=== PATIENT | female | born 1995 | race Caucasian/White ===

== ENCOUNTER 2017-08-12 04:41 | Emergency (ER) | payer OTHER ==
[~2017-08-12] VITALS: Ht 160 cm; Wt 55.5 kg
[2017-08-12 04:43] VITALS: BP 145/91; PULSE 97; RESP 20; TEMP 99.4; O2SAT 100
[2017-08-12] MEDS ORDERED: SODIUM CHLOR 0.9% 1000 ML INJ 1,000 ML IV SCH (04:53)
[2017-08-12] MEDS ORDERED: PROCHLORPERAZINE INJ 10 MG/2 ML VIAL IV PUSH ONE (05:00)
[2017-08-12] MEDS ORDERED: diphenhydrAMINE HCL 50 MG/ML VIAL IV PUSH ONE (05:00)
[2017-08-12] MEDS ORDERED: DICYCLOMINE HCL 20 MG/2 ML VIAL IM ONE (05:00)
[2017-08-12] MEDS ORDERED: SODIUM CHLORIDE 0.9% FLUSH 10 ML FLUSH IV FLUSH PRN (05:00)
--- NOTE | 2017-08-12 05:00 | PD ---
HPI Chief Complaint: Abdominal Pain Time Seen by Provider: 04:53 Travel History International Travel<30 days: No Contact w/Intl Traveler<30days: No Traveled to known affect area: No History of Present Illness HPI 21 yo F c/o abdominal pain and vomiting. Pt reports a history of cyclic vomiting syndrome and that morphine and muscle relaxers work best for her typically. No fever. No dysuria or discharge. Patient states last oral intake was [employer] chicken noodle soup. She states that normally she develops nausea and vomiting that lasts for 8 hours at a time. PFSH Past Medical History Gastrointestinal Disorders: Yes (ABDOMINAL PAIN) Influenza Vaccination: No ?: Unknown Past Surgical History Surgical History: No Previous Surgery Social History Alcohol Use: Yes (OCCAS) Tobacco Use: No Substance Use: No Allergies-Medications (Allergen,Severity, Reaction): Coded Allergies: No Known Allergies (Unverified , 08/12/17) Reported Meds & Prescriptions Reported Meds & Active Scripts Active Phenergan (Promethazine HCl) 25 Mg Tablet 25 Mg PO Q6H PRN Review of Systems Except as stated in HPI: all other systems reviewed are Neg Physical Exam Narrative GENERAL: 21-year-old female pleasant well-nourished well-developed Vital Signs Date Time Temp Pulse Resp B/P (MAP) Pulse Ox O2 Delivery O2 Flow Rate FiO2 08/12/17 04:49 20 08/12/17 04:43 99.4 97 20 145/91 (109) 100 SKIN: Warm and dry. HEAD: Atraumatic. Normocephalic. EYES: Pupils equal and round. No scleral icterus. No injection or drainage. ENT: No nasal bleeding or discharge. Mucous membranes pink and moist. NECK: Trachea midline. No JVD. CARDIOVASCULAR: Regular rate and rhythm. RESPIRATORY: No accessory muscle use. Clear to auscultation. Breath sounds equal bilaterally. GASTROINTESTINAL: Abdomen is soft. There is generalized nonspecific voluntary guarding. MUSCULOSKELETAL: Extremities without clubbing, cyanosis, or edema. No obvious deformities. NEUROLOGICAL: Awake and alert. No obvious cranial nerve deficits. Motor grossly within normal limits. Five out of 5 muscle strength in the arms and legs. Normal speech. PSYCHIATRIC: Appropriate mood and affect; insight and judgment normal. Data Data Last Documented VS Vital Signs Date Time Temp Pulse Resp B/P (MAP) Pulse Ox O2 Delivery O2 Flow Rate FiO2 08/12/17 05:37 17 100 Room Air 08/12/17 04:43 99.4 97 145/91 (109) Orders Orders Complete Blood Count With Diff (08/12/17 04:53) Comprehensive Metabolic Panel (08/12/17 04:53) Lipase (08/12/17 04:53) Iv Access Insert/Monitor (08/12/17 04:53) Ecg Monitoring (08/12/17 04:53) Oximetry (08/12/17 04:53) Sodium Chlor 0.9% 1000 Ml Inj (Ns 1000 M (08/12/17 04:53) Sodium Chloride 0.9% Flush (Ns Flush) (08/12/17 05:00) Dicyclomine Inj (Bentyl Inj) (08/12/17 05:00) Prochlorperazine Inj (Compazine Inj) (08/12/17 05:00) Diphenhydramine Inj (Benadryl Inj) (08/12/17 05:00) Ed Discharge Order (08/12/17 06:16) Labs Laboratory Tests Test 08/12/17 05:10 White Blood Count 10.6 TH/MM3 Red Blood Count 4.02 MIL/MM3 Hemoglobin 12.5 GM/DL Hematocrit 36.4 % Mean Corpuscular Volume 90.6 FL Mean Corpuscular Hemoglobin 31.2 PG Mean Corpuscular Hemoglobin Concent 34.4 % Red Cell Distribution Width 13.2 % Platelet Count 287 TH/MM3 Mean Platelet Volume 7.9 FL Neutrophils (%) (Auto) 77.2 % Lymphocytes (%) (Auto) 13.6 % Monocytes (%) (Auto) 9.0 % Eosinophils (%) (Auto) 0.0 % Basophils (%) (Auto) 0.2 % Neutrophils # (Auto) 8.2 TH/MM3 Lymphocytes # (Auto) 1.4 TH/MM3 Monocytes # (Auto) 1.0 TH/MM3 Eosinophils # (Auto) 0.0 TH/MM3 Basophils # (Auto) 0.0 TH/MM3 CBC Comment DIFF FINAL Differential Comment Blood Urea Nitrogen 18 MG/DL Creatinine 0.73 MG/DL Random Glucose 115 MG/DL Total Protein 7.1 GM/DL Albumin 3.5 GM/DL Calcium Level 8.6 MG/DL Alkaline Phosphatase 70 U/L Aspartate Amino Transf (AST/SGOT) 38 U/L Alanine Aminotransferase (ALT/SGPT) 30 U/L Total Bilirubin 0.4 MG/DL Sodium Level 142 MEQ/L Potassium Level 3.5 MEQ/L Chloride Level 107 MEQ/L Carbon Dioxide Level 23.4 MEQ/L Anion Gap 12 MEQ/L Estimat Glomerular Filtration Rate 102 ML/MIN Lipase 73 U/L MDM Medical Decision Making Medical Screen Exam Complete: Yes Emergency Medical Condition: Yes Medical Record Reviewed: Yes Differential Diagnosis Constipation, Gastritis, Acute Cholecystitis, Biliary Colic, Pancreatitis, JAMES , Hepatitis, Bowel Obstruction, Cystitis, Mesenteric Ischemia, AAA, Appendicitis , Renal Stone/Hydronephrosis, GERD, perforated viscous Narrative Course CBC & BMP Diagram 08/12/17 05:10 Total Protein 7.1, Albumin 3.5, Calcium Level 8.6, Alkaline Phosphatase 70, Aspartate Amino Transf (AST/SGOT) 38, Alanine Aminotransferase (ALT/SGPT) 30, Total Bilirubin 0.4 Lipase normal Urine is negative Presentation consistent with cyclic vomiting syndrome. Phenergan prescription. Patient's ready for discharge home. Diagnosis Primary Impression: Nausea & vomiting Qualified Codes: R11.2 - Nausea with vomiting, unspecified Referrals: Shannan Dave MD 2 days Med/Other Pt SpecificInfo: Prescription(s) given Scripts Promethazine (Phenergan) 25 Mg Tablet 25 MG PO Q6H Y for NAUSEA OR VOMITING, #15 TAB 0 Refills Prov: Narciso Campos MD 08/12/17 Disposition: DISCHARGE HOME Condition: Stable Narciso Campos MD Aug 12, 2017 05:00
[2017-08-12 05:36] LABS: AUTOMATED NEUTROPHIL # 8.2 TH/MM3 (1.8-7.7); BASOPHIL % 0.2 % (0.0-2.0); HEMATOCRIT 36.4 % (35.0-46.0); HEMOGLOBIN 12.5 GM/DL (11.6-15.3); LYMPH % 13.6 % (9.0-44.0); LYMPHOCYTE # 1.4 TH/MM3 (1.0-4.8); MEAN CELL VOLUME 90.6 FL (80.0-100.0); MEAN CORPUSCULAR HEMOGLOBIN 31.2 PG (27.0-34.0); MEAN CORPUSCULAR HGB CONC 34.4 % (32.0-36.0); MEAN PLATELET VOLUME 7.9 FL (7.0-11.0); NEUT % 77.2 % (16.0-70.0); PLATELET COUNT 287 TH/MM3 (150-450); RED BLOOD COUNT 4.02 MIL/MM3 (4.00-5.30); RED CELL DISTRIBUTION WIDTH 13.2 % (11.6-17.2); WHITE BLOOD COUNT 10.6 TH/MM3 (4.0-11.0)
[2017-08-12 05:37] VITALS: RESP 17; O2SAT 100
[2017-08-12 06:09] LABS: ALBUMIN 3.5 GM/DL (3.4-5.0); ALT (GPT) 30 U/L (9-42); AST (GOT) 38 U/L (16-38); BICARBONATE 23.4 MEQ/L (21.0-32.0); BLOOD UREA NITROGEN 18 MG/DL (7-18); CALCIUM 8.6 MG/DL (8.5-10.1); CHLORIDE 107 MEQ/L (98-107); CREATININE 0.73 MG/DL (0.50-1.00); GLOMERULAR FILTRATION RATE 102 ML/MIN (>89); GLUCOSE,RANDOM 115 MG/DL (74-106); SODIUM (NA) 142 MEQ/L (136-145)
[2017-08-12 06:12] LABS: ALKALINE PHOSPHATASE 70 U/L (45-117); TOTAL BILIRUBIN ADULT 0.4 MG/DL (0.2-1.0); TOTAL PROTEIN 7.1 GM/DL (6.4-8.2)
[2017-08-12] MEDS ORDERED: PROM25TA10 PO (06:15)
== END 2017-08-12 07:00 | disposition home or self-care (01) ==
LOC: NEPE 04:41
DX: R11.2 Nausea with vomiting, unspecified (principal); R10.9 Unspecified abdominal pain
CPT/HCPCS: 80053; 83690; 85025; 96372; 96374; 96375; 99284; J0500; J0780; J1200; J7030